=== PATIENT | female | born 1930 | race Caucasian/White ===

== ENCOUNTER 2018-08-29 08:04 | Day surgery (SDC) | payer MEDICARE ==
[~2018-08-29] VITALS: Ht 165.1 cm; Wt 66.7 kg
[~2018-08-29 08:04] MED LIST: CLOPIDOGREL75 MG PO; ECOTRIN LOW STR81 MG PO; METOPROL TAR25 M1 PO; PROTONIX40 M2 PO; SIMVASTATIN40 MG PO
[2018-08-29 09:48] LABS: HEMATOCRIT 23.9 % (37.0-47.0); HEMOGLOBIN 7.6 g/dl (12.0-16.0); IMMATURE GRANULOCYTES 0.3 % (0.0-5.0); MEAN CELL VOLUME 83.9 fL CALC (80.0-100.0); MEAN CORPUSCULAR HGB 26.7 pG CALC (26.0-32.0); MEAN CORPUSCULAR HGB CONC 31.8 g/L CALC (32.0-36.0); NEUT# 2.56 thou/uL (2.00-7.15); RED BLOOD COUNT 2.85 mill/uL (4.20-5.60)
[2018-08-29 10:56] VITALS: BP 140/66
== END 2018-08-29 11:18 | disposition home or self-care (01) ==
LOC: ENDO 08:04 → ORM 09:15 → ENDO 10:00
PROVIDERS: ATTEND Surgery
PROC: 0DJ08ZZ Inspection of Upper Intestinal Tract, Via Natural or Artificial Opening Endoscopic (ICD-10-PCS; principal; 2018-08-29)
PROC: 0DJD8ZZ Inspection of Lower Intestinal Tract, Via Natural or Artificial Opening Endoscopic (ICD-10-PCS; 2018-08-29)
DX: D50.9 Iron deficiency anemia, unspecified (principal); R19.5 Other fecal abnormalities; K57.30 Diverticulosis of large intestine without perforation or abscess without bleeding; K64.8 Other hemorrhoids; I10 Essential (primary) hypertension

== ENCOUNTER → 2018-09-29 | Outpatient (REF) | payer MEDICARE ==
[2018-09-29] VITALS (8 sets, daily range): BP systolic 110–124; BP diastolic 56–65
== END | disposition home or self-care (01) ==
LOC: MSOP 07:57
PROVIDERS: ATTEND Nurse Practitioner Family
PROC: 30233N1 Transfusion of Nonautologous Red Blood Cells into Peripheral Vein, Percutaneous Approach (ICD-10-PCS; principal; 2018-09-29)
PROC: 30233N1 Transfusion of Nonautologous Red Blood Cells into Peripheral Vein, Percutaneous Approach (ICD-10-PCS; 2018-09-29)
DX: D64.9 Anemia, unspecified (principal)
CPT/HCPCS: P9016

== ENCOUNTER 2019-06-24 16:29 | Emergency (ER) | payer MEDICARE ==
[~2019-06-24] VITALS: Ht 165.1 cm; Wt 67.0 kg
[~2019-06-24 16:29] MED LIST changes: +CALCIUM600 M1 PO; +FISH OIL1000 MG PO; +FOLIC ACID1 M1 PO; +GLIPIZIDE10 MG PO; +LIPITOR40 M1 PO; +LISINOPRIL20 MG PO; +TRULICITY1.5 MG/0.5 SC; +VITAMIN C500 M6 PO
[2019-06-24 17:36] LABS: HEMATOCRIT 29.3 % (37.0-47.0); HEMOGLOBIN 9.9 g/dl (12.0-16.0); IMMATURE GRANULOCYTES 0.8 % (0.0-5.0); MEAN CELL VOLUME 87.7 fL CALC (80.0-100.0); MEAN CORPUSCULAR HGB 29.6 pG CALC (26.0-32.0); MEAN CORPUSCULAR HGB CONC 33.8 g/L CALC (32.0-36.0); NEUT# 9.14 thou/uL (2.00-7.15); RED BLOOD COUNT 3.34 mill/uL (4.20-5.60); RED CELL DISTRI WIDTH 14.1 % (11.5-15.5)
[2019-06-24 18:02] LABS: BUN 17 mg/dL (8-23); BUN/CREATININE RATIO 25 (12-20 (CALC)); CARBON DIOXIDE 24 mmol/l (22-30); CHLORIDE 94 mmol/l (95-108); CREATININE 0.7 mg/dL (0.5-1.0); GFR > 60 ML/MIN (>=60 (CALC)); GFR FOR AFR.AMER. > 60 ML/MIN (>=60 (CALC)); POTASSIUM 4.2 mmol/l (3.5-5.1)
[2019-06-24 18:03] LABS: ANION GAP 16 (6-22 (CALC)); SODIUM 130 mmol/l (137-146)
[2019-06-24 18:37] VITALS: BP 176/105
[2019-06-24] MEDS ORDERED: VOLTAREN1%GEL TOP (18:42)
== END 2019-06-24 18:47 | disposition home or self-care (01) ==
LOC: ED 16:29
PROVIDERS: Family Medicine
DX: R60.0 Localized edema (principal); S29.012A Strain of muscle and tendon of back wall of thorax, initial encounter; E87.1 Hypo-osmolality and hyponatremia; D64.9 Anemia, unspecified; X58.XXXA Exposure to other specified factors, initial encounter; Z95.0 Presence of cardiac pacemaker
CPT/HCPCS: P9016

== ENCOUNTER 2019-07-03 12:05 | Observation (INO) | payer MEDICARE ==
[~2019-07-03] VITALS: Ht 162.6 cm; Wt 70.8 kg
[~2019-07-03 12:05] MED LIST changes: +VOLTAREN1%GEL TOP
[2019-07-03 12:20] VITALS: BP 142/81
[2019-07-03 13:13] LABS: HEMATOCRIT 26.2 % (37.0-47.0); MEAN CELL VOLUME 87.9 fL CALC (80.0-100.0); MEAN CORPUSCULAR HGB 30.2 pG CALC (26.0-32.0); MEAN CORPUSCULAR HGB CONC 34.4 g/L CALC (32.0-36.0); NEUT# 8.66 thou/uL (2.00-7.15); RED BLOOD COUNT 2.98 mill/uL (4.20-5.60); RED CELL DISTRI WIDTH 15.2 % (11.5-15.5)
--- NOTE | 2019-07-03 13:30 | NUR ---
PT HAD COME VIA WHEELCHAIR A DIRECT ADMIT. ASSESSMENT DONE. PT A&O X3 BUT FORGETFUL AT TIMES. TELE IN PLACE. PT STATED PAIN IN BACK. RESPS EVEN AND UNLABORED. PT DENIES ANY NEEDS AT THIS TIME. SAFETY PRECAUTIONS REINFORCED AND CALL LIGHT IN REACH.
[2019-07-03 13:36] LABS: ALBUMIN 3.6 g/dL (3.2-5.0); ALKALINE PHOSPHATASE 147 u/l (38-126); ANION GAP 13 (6-22 (CALC)); BUN 18 mg/dL (8-23); BUN/CREATININE RATIO 29 (12-20 (CALC)); CARBON DIOXIDE 29 mmol/l (22-30); CHLORIDE 93 mmol/l (95-108); CREATININE 0.6 mg/dL (0.5-1.0); GFR > 60 ML/MIN (>=60 (CALC)); GFR FOR AFR.AMER. > 60 ML/MIN (>=60 (CALC)); POTASSIUM 3.6 mmol/l (3.5-5.1); SODIUM 132 mmol/l (137-146); TOTAL PROTEIN 6.5 g/dL (6.3-8.2)
[2019-07-03 13:42] LABS: BILIRUBIN, TOTAL 0.7 mg/dL (0.0-1.4); SGOT/AST 326 u/l (9-36)
[2019-07-03] MEDS ORDERED: TOPROL XL25 M1 PO (15:11)
--- NOTE | 2019-07-03 16:05 | NUR ---
PT IS SITTING IN RECLINER WITH NO S/S OF DISTRESS NOTED. PT DENIES ANY NEEDS AT THIS TIME. CALL LIGHT IN REACH.
[2019-07-03 16:57] VITALS: BP 134/70
[2019-07-03 18:50] VITALS: BP 117/69
--- NOTE | 2019-07-03 18:50 | NUR ---
REPORT FROM NICOLE DENIS. PT SITTING UP IN CHAIR AT BEDSIDE. ALERT AND ORIENTED. PT DENIES ANY PAIN OR DISCOMFORT. IV SITE APPEARS HEALTHY. MOTH EXTERMINATOR IN PLACE. DISCUSSED POC. PT VERBALIZED UNDERSTANDING. NO CURRENT WANTS OR NEEDS NOTED. CALL LIGHT WITHIN REACH. WILL CONTINUE TO MONITOR.
--- NOTE | 2019-07-03 20:31 | NUR ---
PARTIAL BATH AND LINEN CHANGE UPON REQUEST. PT SITTING UP IN CHAIR. NO APPARENT DISTRESS NOTED. CALL LIGHT WITHIN REACH. WILL CONTINUE TO MONITOR.
[2019-07-04] VITALS (7 sets, daily range): BP systolic 110–139; BP diastolic 72–85
--- NOTE | 2019-07-04 01:28 | NUR ---
PT RESTING IN BED WITH EYES CLOSED. WAKES EASILY. ER KILN PUSHER REPORTS 10 BEAT RUN OF VTACH. PT DENIES ANY PALPITATIONS OR FLUTTERING. NO APPARENT DISTRESS NOTED. PHYSICIAN MADE AWARE. CALL LIGHT WITHIN REACH. WILL CONTINUE TO MONITOR.
--- NOTE | 2019-07-04 05:31 | NUR ---
PT RESTING IN BED WITH EYES CLOSED. NO APPARENT DISTRESS NOTED. CALL LIGHT WITHIN REACH. WILL CONTINUE TO MONITOR.
[2019-07-04 05:33] LABS: ANION GAP 15 (6-22 (CALC)); BUN 17 mg/dL (8-23); BUN/CREATININE RATIO 30 (12-20 (CALC)); CARBON DIOXIDE 31 mmol/l (22-30); CHLORIDE 91 mmol/l (95-108); CREATININE 0.6 mg/dL (0.5-1.0); GFR > 60 ML/MIN (>=60 (CALC)); GFR FOR AFR.AMER. > 60 ML/MIN (>=60 (CALC)); POTASSIUM 3.3 mmol/l (3.5-5.1); SODIUM 133 mmol/l (137-146)
--- NOTE | 2019-07-04 08:00 | NUR ---
ASSESSMENT DONE. TELE IN PLACE. PT IS A&O X3. PT DENIES PAIN AT THIS TIME. RESPS EVEN AND UNLABORED. PT DENIES ANY NEEDS AT THIS TIME CALL LIGHT IN REACH.
[2019-07-04 08:06] LABS: ALBUMIN 3.3 g/dL (3.2-5.0); BILIRUBIN, TOTAL 0.8 mg/dL (0.0-1.4); TOTAL PROTEIN 5.9 g/dL (6.3-8.2)
--- NOTE | 2019-07-04 12:06 | NUR ---
PT IS SITTING IN RECLINER. PT DENIES ANY NEEDS AT THIS TIME. PO FLUIDS PROVIDED. CALL LIGHT IN REACH.
--- NOTE | 2019-07-04 16:03 | NUR ---
PT IS SITTING IN RECLINER. PT DENIES PAIN OR NEEDS AT THIS TIME. CALL LIGHT IN REACH.
--- NOTE | 2019-07-04 19:28 | NUR ---
REPORT FROM NICOLE DENIS. PT SITTING UP IN CHAIR AT BEDSIDE. NO APPARENT DISTRESS NOTED. PT ALERT AND ORIENTED. DENIES ANY PAIN OR DISCOMFORT. IV SITE APPEARS HEALTHY. STAPLING MACHINE OPERATOR IN PLACE. DISCUSSED POC. PT VERBALIZED UNDERSTANDING. CALL LIGHT WITHIN REACH. WILL CONTINUE TO MONITOR.
--- NOTE | 2019-07-04 23:11 | NUR ---
PT RESTING IN BED WITH EYES CLOSED. NO APPARENT DISTRESS NOTED. PT DENIES ANY PAIN OR DISCOMFORT. CALL LIGHT WITHIN REACH. WILL CONTINUE TO MONITOR.
--- NOTE | 2019-07-05 03:15 | NUR ---
PT RESTING IN BED WITH EYES CLOSED. NO APPARENT DISTRESS NOTED. CALL LIGHT WITHIN REACH. WILL CONTINUE TO MONITOR.
[2019-07-05 04:29] VITALS: BP 114/79
[2019-07-05 06:14] LABS: HEMATOCRIT 26.1 % (37.0-47.0); HEMOGLOBIN 8.8 g/dl (12.0-16.0); IMMATURE GRANULOCYTES 0.6 % (0.0-5.0); MEAN CELL VOLUME 88.8 fL CALC (80.0-100.0); MEAN CORPUSCULAR HGB 29.9 pG CALC (26.0-32.0); MEAN CORPUSCULAR HGB CONC 33.7 g/L CALC (32.0-36.0); NEUT# 6.63 thou/uL (2.00-7.15); RED BLOOD COUNT 2.94 mill/uL (4.20-5.60); RED CELL DISTRI WIDTH 15.1 % (11.5-15.5)
[2019-07-05 06:27] LABS: ALKALINE PHOSPHATASE 131 u/l (38-126); ANION GAP 11 (6-22 (CALC)); BUN 13 mg/dL (8-23); BUN/CREATININE RATIO 23 (12-20 (CALC)); CARBON DIOXIDE 35 mmol/l (22-30); CHLORIDE 91 mmol/l (95-108); CREATININE 0.6 mg/dL (0.5-1.0); GFR > 60 ML/MIN (>=60 (CALC)); GFR FOR AFR.AMER. > 60 ML/MIN (>=60 (CALC)); MAGNESIUM 1.6 mg/dL (1.6-2.3); POTASSIUM 3.8 mmol/l (3.5-5.1); SGOT/AST 192 u/l (9-36); SODIUM 133 mmol/l (137-146)
--- NOTE | 2019-07-05 08:15 | NUR ---
PT IS SITTING IN RECLINER. PT IS A&O X3. PT DENIES PAIN AT THIS TIME. TELE IN PLACE. PT DENIES ANY NEEDS AT THIS TIME . CALL LIGHT IN REACH.
--- NOTE | 2019-07-05 10:04 | NUR ---
REFUSED PHYS THERAPY THIS AM.
[2019-07-05 10:47] VITALS: BP 106/69
[2019-07-05 11:00] LABS: URINE BLOOD DIPSTICK NEGATIVE (NEGATIVE); URINE COLOR YELLOW; URINE GLUCOSE - DIPSTICK NEGATIVE (NEGATIVE); URINE KETONE NEGATIVE (NEGATIVE); URINE LEUK ESTERASE NEGATIVE (NEGATIVE); URINE NITRITE - DIPSTICK NEGATIVE (Negative); URINE PROTEIN - DIPSTICK 30 mg/dL (NEG-TRACE); URINE SPECIFIC GRAVITY 1.015
[2019-07-05 11:05] LABS: URINE BILIRUBIN - DIPSTICK SMALL (NEGATIVE); URINE EPITHELIAL CELLS MODERATE EPI/hpf (0-FEW)
--- NOTE | 2019-07-05 12:00 | NUR ---
PT IS SITTING IN RECLINER. PT DENIES PAIN OR NEEDS AT THIS TIME. CALL LIGHT IN REACH.
[2019-07-05] MEDS ORDERED: LASIX 20 MG TAB20 MG PO (13:10)
[2019-07-05] MEDS ORDERED: VANTIN200 M1 PO (13:11)
[2019-07-05 16:02] VITALS: BP 112/72
--- NOTE | 2019-07-05 18:00 | NUR ---
Discharge instructions given. Patient verbalizes understanding of same. Discharged in stable condition via Wheelchair to Home with family. All belongings sent with pt.
== END 2019-07-05 18:00 | disposition home health service (06) ==
LOC: MS2 12:05
PROVIDERS: Nurse Practitioner Family; ADMIT Internal Medicine; ATTEND Internal Medicine
PROC: 3E0234Z Introduction of Serum, Toxoid and Vaccine into Muscle, Percutaneous Approach (ICD-10-PCS; principal; 2019-07-05)
DX: I11.0 Hypertensive heart disease with heart failure (principal); I50.9 Heart failure, unspecified; D64.9 Anemia, unspecified; R74.0 Nonspecific elevation of levels of transaminase and lactic acid dehydrogenase [LDH]; E87.1 Hypo-osmolality and hyponatremia; M25.512 Pain in left shoulder; M62.81 Muscle weakness (generalized); E87.6 Hypokalemia; Z95.0 Presence of cardiac pacemaker; Z23 Encounter for immunization
CPT/HCPCS: G0378; G0379

== ENCOUNTER 2019-08-16 11:57 | Inpatient (IN) | payer MEDICARE ==
[~2019-08-16] VITALS: Ht 165.1 cm; Wt 57.2 kg
[~2019-08-16 11:57] MED LIST changes: +LASIX 20 MG TAB20 MG PO; +TOPROL XL25 M1 PO; +VANTIN200 M1 PO
[2019-08-16 12:38] VITALS: BP 116/77
[2019-08-16 13:44] LABS: HEMATOCRIT 26.8 % (37.0-47.0); HEMOGLOBIN 9.1 g/dl (12.0-16.0); IMMATURE GRANULOCYTES 1.2 % (0.0-5.0); MEAN CORPUSCULAR HGB 29.5 pG CALC (26.0-32.0); NEUT# 5.98 thou/uL (2.00-7.15); RED BLOOD COUNT 3.08 mill/uL (4.20-5.60)
[2019-08-16 13:59] LABS: ALBUMIN 3.3 g/dL (3.2-5.0); ALKALINE PHOSPHATASE 179 u/l (38-126); ANION GAP 12 (6-22 (CALC)); BILIRUBIN, TOTAL 1.4 mg/dL (0.0-1.4); BUN 18 mg/dL (8-23); BUN/CREATININE RATIO 29 (12-20 (CALC)); CARBON DIOXIDE 35 mmol/l (22-30); CHLORIDE 85 mmol/l (95-108); CREATININE 0.6 mg/dL (0.5-1.0); GFR > 60 ML/MIN (>=60 (CALC)); GFR FOR AFR.AMER. > 60 ML/MIN (>=60 (CALC)); POTASSIUM 3.1 mmol/l (3.5-5.1); SGOT/AST 92 u/l (9-36); SODIUM 129 mmol/l (137-146); TOTAL PROTEIN 5.9 g/dL (6.3-8.2)
[2019-08-16 15:05] VITALS: BP 124/82
--- NOTE | 2019-08-16 18:29 | NUR ---
PT ARRIVED TO FLOOR @ 1220 VIA WC ACCOMPANIED BY FRIEND. PT REPORTS FATIGUE AND GENERALIZED WEAKNESS IS REASON FOR ADMITTANCE. REPORTS CONDITION HAS BEEN ONGOING FOR A COUPLE WEEKS. NO PAIN. NO FEVER. ALSO REPORTS ISSUES WITH CONSTIPATION LATELY, HAD BEEN TAKING [place] WHICH STOPPED WORKING, ADN STARTED TAKING [place]. CONSTIPATION IS ACCOMPANEID BY MILD LOW BACK PAIN. PT ALERT ADN ORIENTED. ON RA. LE EDEMA 3+ NOTED, COMPRESSION STOCKINGS FROM HOME IN PLACE. PT REPORTS PACEMAKER. LAST BM 08/15/19, BROWN AND HARD. PT AMBULATED TO BATHROOM, ENVIRONMENTALLY DEPENDENT. WEAKNESS IN LEGS. PT NOTIFIED OF FALL RISK. FALL PRECAUTIONS DISCUSSED. PLAN OF CARE REVIEWED. CALL LIGHT REVIEWED AND IN REACH. PT STATES UNDERSTANDING.
[2019-08-16 19:44] LABS: URINE BILIRUBIN - DIPSTICK SMALL (NEGATIVE); URINE BLOOD DIPSTICK NEGATIVE (NEGATIVE); URINE CLARITY CLOUDY; URINE COLOR YELLOW; URINE GLUCOSE - DIPSTICK 100 mg/dL (NEGATIVE); URINE KETONE NEGATIVE (NEGATIVE); URINE LEUK ESTERASE MODERATE (Negative); URINE NITRITE - DIPSTICK NEGATIVE (Negative); URINE PH 6.5 (4.5-8.0); URINE PROTEIN - DIPSTICK 30 mg/dL (NEG-TRACE); URINE SPECIFIC GRAVITY 1.015; URINE UROBILINOGEN - DIPSTICK >=8.0 E.U./dL (0.2)
[2019-08-16 20:00] VITALS: BP 129/81
[2019-08-16 20:03] LABS: URINE BACTERIA FEW hpf; URINE CALCIUM OXALATE CRYSTALS FEW lpf; URINE SQUAMOUS EPITHELIAL CELL FEW EPI/hpf (0-FEW); URINE WBC 20-50 WBC/hpf (0-5)
--- NOTE | 2019-08-16 20:38 | NUR ---
ASSESSMENT COMPLETED. IV SITE PATENT TO LAC AND SL. POTASSIUM GIVEN AT THIS TIME PER ORDER. PT. HAS HER OWN COMPRESSION STOCKINGS ON TO BLE. UPDATED ON POC. ENCOURAGED TO CALL FOR ANY NEEDS. CALL LIGHT IS IN REACH. WILL CONTINUE TO MONITOR.
--- NOTE | 2019-08-17 00:05 | NUR ---
PT. RESTING IN BED WITH EYES CLOSED; RESP. EVEN AND UNLABORED. CALL LIGHT IS IN REACH. WILL CONTINUE TO MONITOR.
[2019-08-17 04:00] VITALS: BP 116/73
--- NOTE | 2019-08-17 04:00 | NUR ---
RESTING IN BED WITH EYES CLOSED. RESP. EVEN AND UNLABORED. CALL LIGHT IS IN REACH.
[2019-08-17 05:09] LABS: HEMATOCRIT 27.1 % (37.0-47.0); HEMOGLOBIN 9.3 g/dl (12.0-16.0); MEAN CELL VOLUME 86.9 fL CALC (80.0-100.0); MEAN CORPUSCULAR HGB 29.8 pG CALC (26.0-32.0); MEAN CORPUSCULAR HGB CONC 34.3 g/L CALC (32.0-36.0); RED BLOOD COUNT 3.12 mill/uL (4.20-5.60)
[2019-08-17 05:33] LABS: BUN 19 mg/dL (8-23); BUN/CREATININE RATIO 31 (12-20 (CALC)); CARBON DIOXIDE 33 mmol/l (22-30); CHLORIDE 88 mmol/l (95-108); CREATININE 0.6 mg/dL (0.5-1.0); GFR > 60 ML/MIN (>=60 (CALC)); GFR FOR AFR.AMER. > 60 ML/MIN (>=60 (CALC)); SODIUM 128 mmol/l (137-146)
[2019-08-17 05:36] LABS: ANION GAP 11 (6-22 (CALC))
--- NOTE | 2019-08-17 06:01 | NUR ---
RESTING IN BED WITH EYES CLOSED; RESP. EVEN AND UNLABORED. CALL LIGHT IS IN REACH.
[2019-08-17 07:13] VITALS: BP 126/81
--- NOTE | 2019-08-17 07:13 | NUR ---
PT RESTING IN BED, NO SIGNS OF DISTRESS NOTED, RESP EVEN AND UNLABORED. PT ALERT AND ORIENTED X3, DISCUSSED POC, PT VOICES NO NEEDS OR COMPLAINTS AT THIS TIME. ASSESSMENT COMPLETED. CALL LIGHT IN REACH,CONTINUE TO MONITOR.
[2019-08-17 11:56] VITALS: BP 130/85
--- NOTE | 2019-08-17 12:00 | NUR ---
PT PLACED ON 1500ML FLUID RESTRICTION. PT DOES NOT HAVE APPETITE, STILL C/O WEAKNESS. DISCUSSED WITH EPIC PRELUDE ANALYST, ENSURE TID WITH MEALS ORDERED. CALL LIGHT IN REACH,CONTINUE TO MONITOR.
--- NOTE | 2019-08-17 14:38 | NUR ---
PT GIVEN IV LASIX, ASSISTED PT TO BSC ATTEMPTING BM BUT UNABLE, WILL NOTIFY MD FOR STOOL SOFTENER. PT STILL C/O WEAKNESS. DISCUSSED POSSIBLY MOVING PT TO ROOM CLOSER TO NURSES STATION, PT DECLINED AT THIS TIME. WILL ATTEMPT AGAIN AT LATER TIME. CALL LIGHT IN REACH,CONTINUE TO MONITOR.
--- NOTE | 2019-08-17 15:32 | NUR ---
PT BLADDER SCANNED 134ML NOTED
--- NOTE | 2019-08-17 16:00 | NUR ---
PT ASSISTED TO BSC TO VOID, PT STATES SHE IS CONSTIPATED AND IS GOING TO BE ON THE BSC A WHILE, INSTRUCTED TO CALL FOR ASSISTANCE, VERBALIZED UNDERSTANDING. WHEN WORKFORCE DEVELOPMENT VICE PRESIDENT ARRIVED TO ROOM, NOTED PT WAS DIGITALLY DISIMPACTING HERSELF, INSTRUCTED PT NOT TO DO THAT, NOTED SMALL HARD STOOL, PERICARE GIVEN, ASSISTED PT TO BED, MANTEL CRAFTSMAN NOTIFIED AND SUPPOSITORY OBTAINED. CALL LIGHT IN REACH,CONTINUE TO MONITOR.
[2019-08-17 16:34] VITALS: BP 126/83
--- NOTE | 2019-08-17 17:08 | NUR ---
PT MOVED TO RM 271 CLOSER TO NURSES STATION, PT TOLERATED WELL. CALL LIGHT IN REACH,CONTINUE TO MONITOR.
[2019-08-17 19:00] VITALS: BP 137/79
--- NOTE | 2019-08-17 20:24 | NUR ---
PT SITTING IN BED A&O X3. NO DISTRESS NOTED. ASSISTED PT TO BSC. LETHARGIC DEMENOR NOTED. PT C/O OF SOME WEAKNESS. NO OTHER COMPLAINTS AT THIS TIME. ASSESSMENT COMPLETED. DISCUSSED POC. CALL LIGHT IN REACH. CONTINUE TO MONITOR.
--- NOTE | 2019-08-17 21:12 | NUR ---
ASSISTED PT TO BSC. 800 URINE OUTPUT. ASSISTED PT BACK INTO BED. BED ALARM SET AND INSTRUCTIONS GIVEN TO CALL WHEN SHE NEEDS TO GO TO THE BATHROOM. PT VERBALIZED UNDERSTANDING.
--- NOTE | 2019-08-17 22:11 | NUR ---
ASSISTED PT TO BSC. 500 URINE OUTPUT. ASSISTED PT BACK INTO BED. BED ALARM SET AND INSTRUCTIONS GIVEN TO CALL WHEN SHE HAS TO GO TO THE BATHROOM. PT VERBALIZED UNDERSTANDING.
[2019-08-18] VITALS: BP 133/71
--- NOTE | 2019-08-18 02:30 | NUR ---
PT SLEEPING IN BED. NO DISTRESS NOTED. CONTINUE TO MONITOR.
[2019-08-18 05:41] VITALS: BP 141/80
[2019-08-18 05:45] LABS: HEMATOCRIT 28.5 % (37.0-47.0); HEMOGLOBIN 9.4 g/dl (12.0-16.0); MEAN CELL VOLUME 88.8 fL CALC (80.0-100.0); MEAN CORPUSCULAR HGB 29.3 pG CALC (26.0-32.0); RED BLOOD COUNT 3.21 mill/uL (4.20-5.60)
[2019-08-18 05:59] LABS: BUN 20 mg/dL (8-23); BUN/CREATININE RATIO 33 (12-20 (CALC)); CARBON DIOXIDE 37 mmol/l (22-30); CHLORIDE 84 mmol/l (95-108); CREATININE 0.6 mg/dL (0.5-1.0); GFR > 60 ML/MIN (>=60 (CALC)); GFR FOR AFR.AMER. > 60 ML/MIN (>=60 (CALC)); MAGNESIUM 1.6 mg/dL (1.6-2.3); SODIUM 130 mmol/l (137-146)
[2019-08-18 06:00] LABS: ANION GAP 12 (6-22 (CALC)); POTASSIUM 3.3 mmol/l (3.5-5.1)
--- NOTE | 2019-08-18 06:20 | NUR ---
PT SLEEPING IN BED, NO DISTRESS NOTED. RESP EVEN AND UNLABORED. CONTINUE TO MONITOR.
[2019-08-18 07:24] VITALS: BP 130/85
--- NOTE | 2019-08-18 07:24 | NUR ---
PT RESTING IN BED, NO SIGNS OF DISTRESS NOTED, RESP EVEN AND UNLABORED. ALERT AND ORIENTED X3, PT HAS CONFUSION AT TIMES, BED ALARM IN PLACE FOR SAFETY. PT APPEARS BETTER THAN YESTERDAY, NOT LETHARGIC. PT STATES SHE FEELS BETTER. DISCUSSED 1000ML FLUIDS RESTRICTION, VERBALIZED UNDERSTANDING. ASSESSMENT COMPLETED, CALL LIGHT IN REACH,CONTINUE TO MONITOR.
--- NOTE | 2019-08-18 08:34 | NUR ---
PT RETURNED FROM SHOWER, SITTING IN RECLINER WITH LEGS ELEVATED. VOICES NO NEEDS OR COMPLAINTS AT THIS TIME. MEDICATED PER SEP. CALL LIGHT IN REACH,CONTINUE TO MONITOR.
--- NOTE | 2019-08-18 09:42 | NUR ---
PT ASSISTED TO BSC PT VOIDED 500CC OF CLEAR YELLOW URINE, ASSISTED PT BACK TO RECLINER. CALL LIGHT IN REACH,CONTINUE TO MONITOR.
[2019-08-18 11:38] VITALS: BP 136/81
--- NOTE | 2019-08-18 12:16 | NUR ---
PT MOVED FROM 271 TO RM 280. PT CONTENT, THE ROOM IS WARMER. CALL LIGHT IN REACH,CONTINUE TO MONITOR.
--- NOTE | 2019-08-18 12:39 | NUR ---
RN AT BEDSIDE GIVING IV APRESOLINE.
[2019-08-18 15:00] VITALS: BP 112/68
--- NOTE | 2019-08-18 15:08 | NUR ---
PT SITTING IN RECLINER AT BEDSIDE, VOICES NO NEEDS OR COMPLAINTS AT THIS TIME, PT GIVEN HER 3-11 CUP AT THIS TIME FOR FLUID RESTRICTION, PT VERBALIZED UNDERSTANDING. VISITORS AT BEDSIDE, CALL LIGHT IN REACH,CONTINUE TO MONITOR.
--- NOTE | 2019-08-18 16:56 | NUR ---
PT RESTING IN RECLINER, PT VOICES NO NEEDS OR COMPLAINTS AT THIS TIME. CALL LIGHT IN REACH,CONTINUE TO MONITOR.
--- NOTE | 2019-08-18 20:06 | NUR ---
PT SITTING IN RECLINER. A&O X3. NO DISTRESS NOTED. WHEN ASKED HOW SHE WAS DOING PT VOICED THAT SHE WAS NOT DOING GOOD AND THAT SHE FELT REALLY WEAK. EXPLAINED TO THE PT THAT PT AND OT WOULD BE ASSISTING HER TO REGAIN HER STRENGTH. NOTICED THAT SHE HAD NOT EATEN ANYTHING FROM THE SUPPER THAT WAS BROUGHT TO HER. OFFERED APPLESAUCE AND PT ACCEPTED OFFER. INSTRUCTED PT THAT IF SHE HAD TO GET OUT OF THE RECLINER SHE WAS TO PRESS THE CALL LIGHT BUTTON. DISCUSSED POC. ASSESSMENT COMPLETED. CALL LIGHT IN REACH. CONTINUE TO MONITOR.
--- NOTE | 2019-08-18 20:10 | NUR ---
IV LASIX GIVEN. PT ASSISTED BACK INTO BED WITH SLOW AND SLIGHT UNSTEADY GAIT. BED ALARM IN PLACE. CALL LIGHT IN REACH. CONTINUE TO MONITOR.
[2019-08-18 20:54] VITALS: BP 124/79
--- NOTE | 2019-08-18 23:00 | NUR ---
PT SLEEPING IN BED. NO DISTRESS NOTED. RESP EVEN AND UNLABORED. CONTINUE TO MONITOR.
[2019-08-19] VITALS (7 sets, daily range): BP systolic 98–126; BP diastolic 60–81
[2019-08-19 05:33] LABS: ANION GAP 12 (6-22 (CALC)); BUN 22 mg/dL (8-23); BUN/CREATININE RATIO 40 (12-20 (CALC)); CHLORIDE 81 mmol/l (95-108); CREATININE 0.6 mg/dL (0.5-1.0); GFR > 60 ML/MIN (>=60 (CALC)); GFR FOR AFR.AMER. > 60 ML/MIN (>=60 (CALC)); HEMATOCRIT 29.9 % (37.0-47.0); HEMOGLOBIN 10.1 g/dl (12.0-16.0); MAGNESIUM 1.5 mg/dL (1.6-2.3); MEAN CELL VOLUME 86.4 fL CALC (80.0-100.0); MEAN CORPUSCULAR HGB 29.2 pG CALC (26.0-32.0); MEAN CORPUSCULAR HGB CONC 33.8 g/L CALC (32.0-36.0); POTASSIUM 3.4 mmol/l (3.5-5.1); RED BLOOD COUNT 3.46 mill/uL (4.20-5.60); SODIUM 130 mmol/l (137-146)
[2019-08-19 05:51] LABS: CARBON DIOXIDE 40 mmol/l (22-30)
--- NOTE | 2019-08-19 05:56 | NUR ---
CRITICAL RESULT CALLED IN TO DR RANGEL. CO2 LEVEL: 40. PER PHYSICIAN CONTINUE TO MONITOR PT.
--- NOTE | 2019-08-19 08:00 | NUR ---
ASSESSMENT DONE. PT IS SITTING IN RECLINER. PT IS A&O X3 BUT FORGETFUL AT TIMES. PT DENIES PAIN. TELE IN PLACE. PT DENIES NEEDS AT THIS TIME. SAFETY PRECAUTIONS REINFORCED AND CALL LIGHT IN REACH.
--- NOTE | 2019-08-19 12:06 | NUR ---
PT IS SITTING IN RECLINER TRYING TO EAT HER LUNCH. PT DENIES NEEDS AT THIS TIME. CALL LIGHT IN REACH.
--- NOTE | 2019-08-19 16:29 | NUR ---
PT IS RESTING IN THE RECLINER VISIING WITH FAMILY. PT DENIES NEEDS AT THIS TIME. CALL LIGHT IN REACH.
--- NOTE | 2019-08-19 19:00 | NUR ---
RECEIVED REPORT FROM DAY NURSE PATIENT APPEARS TO BE SLEEPING IN RECLINER. WITH NO DISCOMFORTS NOTED AT THIS TIME,
--- NOTE | 2019-08-19 21:00 | NUR ---
PATIENT ALERT ORINETED, ONE PERSON ASSIST WITH TRANSFER WITH [place] ON LAC PATENT FLUSHES WELL, LBM 08/18, REMAINS ON FLUID RESTICTION, CALL LIGHT AT REACH.
--- NOTE | 2019-08-19 22:00 | NUR ---
PATIENT HAS AN ONGOING MAGNESIUM SULFATE INFUSION, TOLERATED, RESTING IN BED, EYES CLOSED CALL LIGHT AT REACH.
--- NOTE | 2019-08-20 01:00 | NUR ---
PATIENT RESTING IN BED WITH EYES CLOSED WITH EVEN UNLABORED BREATHING CALL LIGHT AT REACH.
[2019-08-20 04:30] VITALS: BP 107/64
[2019-08-20 05:16] LABS: HEMATOCRIT 30.6 % (37.0-47.0); HEMOGLOBIN 10.4 g/dl (12.0-16.0); MEAN CELL VOLUME 86.2 fL CALC (80.0-100.0); MEAN CORPUSCULAR HGB 29.3 pG CALC (26.0-32.0); RED BLOOD COUNT 3.55 mill/uL (4.20-5.60); RED CELL DISTRI WIDTH 14.9 % (11.5-15.5)
--- NOTE | 2019-08-20 05:26 | NUR ---
PATIENT ASLEEP AT THIS TIME, EVEN UNLABORED RESPIRATION CALL LIGHT AT REACH.
[2019-08-20 05:39] LABS: BUN 21 mg/dL (8-23); BUN/CREATININE RATIO 35 (12-20 (CALC)); CHLORIDE 81 mmol/l (95-108); CREATININE 0.6 mg/dL (0.5-1.0); GFR > 60 ML/MIN (>=60 (CALC)); GFR FOR AFR.AMER. > 60 ML/MIN (>=60 (CALC)); POTASSIUM 3.3 mmol/l (3.5-5.1); SODIUM 130 mmol/l (137-146)
[2019-08-20 06:00] LABS: ANION GAP 11 (6-22 (CALC)); CARBON DIOXIDE 41 mmol/l (22-30); MAGNESIUM 2.1 mg/dL (1.6-2.3)
--- NOTE | 2019-08-20 06:11 | NUR ---
AT 0558 RECEIVED A PHONE CALL FROM LAB, CRITICAL CARBON DIOXIDE LEVEL 41, AT [address] AUGUSTE NO ORDERS MADE AT THIS TIME.
[2019-08-20 09:40] VITALS: BP 97/56
[2019-08-20 10:50] VITALS: BP 102/57
[2019-08-20 11:24] VITALS: BP 109/70
--- NOTE | 2019-08-20 13:10 | NUR ---
PATIENT REFUSED TO DO GAIT TRAINING STATING THAT SHE FEELS WEAK TODAY. HOWEVER, SHE AGREED TO DO LE EXERCISES. PATIENT PERFORMED AROME ON BLE IN ALL PLANES (HIP FLEXION, HIP ABDUCTION, HEEL SLIDES, ANKLE DF/PF, AND QUADS MUSCLE SETTING WITH 6 SECS HOLD) X 15 REPS X 1 SET ON EACH MOTIONS TO MAINTAIN ROM AND MUSCLE STRENGTH. PT INSTRUCTED PATIENT TO DO EXERCISES 2X/DAY TO HELP IMPROVE/MAINTAIN STRENGTH AND ENDURANCE. PATIENT EXPRESSED UNDERSTANDING. AMPAC = 11
== END 2019-08-20 15:11 | DRG 292 ==
LOC: MS2 11:57
PROVIDERS: Nurse Practitioner Family; ADMIT Internal Medicine; ATTEND Internal Medicine
DX: I11.0 Hypertensive heart disease with heart failure (principal); E87.1 Hypo-osmolality and hyponatremia; I50.9 Heart failure, unspecified; M62.81 Muscle weakness (generalized); D75.9 Disease of blood and blood-forming organs, unspecified; I27.20 Pulmonary hypertension, unspecified; I08.3 Combined rheumatic disorders of mitral, aortic and tricuspid valves; K59.00 Constipation, unspecified; E87.6 Hypokalemia; E83.42 Hypomagnesemia; R74.0 Nonspecific elevation of levels of transaminase and lactic acid dehydrogenase [LDH]; Z95.0 Presence of cardiac pacemaker

== ENCOUNTER 2019-10-04 10:59 | Observation (INO) | payer MEDICARE ==
[~2019-10-04] VITALS: Ht 165.1 cm; Wt 56.0 kg
--- NOTE | 2019-10-04 11:02 | NUR ---
Pt to room # 6 via W/C for bedside triage
--- NOTE | 2019-10-04 12:13 | NUR ---
PT PRESENTS WITH N/V THAT [facility] STARTED A MONTH AGO AND PT HAS NOT BEEN ABLE TO KEEP FOOD OR LIQUIDS DOWN. PT MUCUS MEMBRANES SEEM DRY. PT CURRENTLY REPORTS HAVING NAUSEA AND EPIGASTRIC PAIN. LUNGS SOUND CLEAR ON LEFT SIDE BUT FAINT CRACKLES ON THE RIGHT LOWER LUNG. PT DENIES CHEST PAIN OR SOB. PT REPORTS WEAKNESS WITHOUT DIZZINESS. WILL CONTINUE TO [facility].
[2019-10-04 12:14] LABS: HEMATOCRIT 26.9 % (37.0-47.0); HEMOGLOBIN 8.9 g/dl (12.0-16.0); IMMATURE GRANULOCYTES 1.7 % (0.0-5.0); MEAN CELL VOLUME 89.1 fL CALC (80.0-100.0); MEAN CORPUSCULAR HGB 29.5 pG CALC (26.0-32.0); MEAN CORPUSCULAR HGB CONC 33.1 g/L CALC (32.0-36.0); NEUT# 8.03 thou/uL (2.00-7.15); RED BLOOD COUNT 3.02 mill/uL (4.20-5.60); RED CELL DISTRI WIDTH 13.6 % (11.5-15.5)
[2019-10-04 12:28] LABS: ALBUMIN 3.6 g/dL (3.2-5.0); ALKALINE PHOSPHATASE 190 u/l (38-126); BUN 33 mg/dL (8-23); BUN/CREATININE RATIO 42 (12-20 (CALC)); CARBON DIOXIDE 36 mmol/l (22-30); CREATININE 0.8 mg/dL (0.5-1.0); GFR > 60 ML/MIN (>=60 (CALC)); GFR FOR AFR.AMER. > 60 ML/MIN (>=60 (CALC)); SGOT/AST 93 u/l (9-36); SODIUM 134 mmol/l (137-146); TOTAL PROTEIN 6.6 g/dL (6.3-8.2)
[2019-10-04 12:29] LABS: ANION GAP 10 (6-22 (CALC)); BILIRUBIN, TOTAL 0.8 mg/dL (0.0-1.4); CHLORIDE 92 mmol/l (95-108); POTASSIUM 4.2 mmol/l (3.5-5.1)
[2019-10-04 12:33] LABS: ACT PARTIAL THROMBO TIME 23.3 SECONDS (20.0-32.5); INTERNATIONAL NORMALIZED RATIO 1.2 RATIO (0.7-1.3); PROTHROMBIN TIME 12.2 SECONDS (9.0-12.5)
[2019-10-04 12:51] LABS: URINE BILIRUBIN - DIPSTICK NEGATIVE (NEGATIVE); URINE BLOOD DIPSTICK NEGATIVE (NEGATIVE); URINE COLOR YELLOW; URINE GLUCOSE - DIPSTICK NEGATIVE (NEGATIVE); URINE KETONE NEGATIVE (NEGATIVE); URINE NITRITE - DIPSTICK NEGATIVE (Negative); URINE PH 5.5 (4.5-8.0); URINE PROTEIN - DIPSTICK NEGATIVE (NEG-TRACE)
[2019-10-04 12:54] LABS: URINE LEUK ESTERASE MODERATE (NEGATIVE)
[2019-10-04 12:55] LABS: URINE BACTERIA FEW hpf; URINE EPITHELIAL CELLS MODERATE EPI/hpf (0-FEW)
--- NOTE | 2019-10-04 13:00 | NUR ---
PT RESTING ON BED TALKING WITH FRIENDS WHO ARE AT BEDSIDE. PT DENIES ANY PAIN OR NEEDS AT THIS TIME
[2019-10-04] MEDS ORDERED: BUPROPION100 MG PO (13:38)
[2019-10-04] MEDS ORDERED: REMERON15 MG PO (13:39)
[2019-10-04] MEDS ORDERED: K-TAB20 MEQ PO (13:39)
[2019-10-04] MEDS ORDERED: BICARSIM80 MG PO (13:40)
--- NOTE | 2019-10-04 13:45 | NUR ---
REPORT MELLISSA WILKERSON IN MED SURG
--- NOTE | 2019-10-04 13:52 | NUR ---
PT TRANSPORTED STABLE AND IN NO DISTRESS TO MED SURG VIA STRETCHER. CARE ASSUMED TO RHEA. Admission Note Report Given to: Transported by: Wheelchair X Stretcher Transported with: X Nurse Transporter X Patent IV O2 Ethnoarchaeologist Location: ICU X MS2
--- NOTE | 2019-10-04 14:05 | NUR ---
Admission Note Report Given to: SBAR PRINTED TO FLOOR Transported by: Wheelchair X Stretcher Transported with: X Nurse Transporter X Patent IV O2 Orchid Superintendent Location: ICU X MS2 Personal wheelchair taken to floor with pt by family member
--- NOTE | 2019-10-04 14:08 | NUR ---
PT ARRIVED TO UNIT VIA STRETCHER WITH ER STAFF AND 2 FRIENDS. EYES CLOSED; ANSWERS QUESTIONS WITH EYES CLOSED, BUT DOES OPEN THEM ON COMMAND. ORIENTED X 2. DENIES PAIN. RESPIRATIONS EVEN AND UNLABORED ON ROOM AIR. IV FLUIDS INFUSING UPON ARRIVAL AT 100ML/HR; IV SITE APPEARS HEALTHY. BRIEF ON; PT INCONTINENT OF URINE. PER FRIENDS PT HAS BEEN HALLUC[facility]ATING AT [facility] WHERE SHE IS FROM; USES WHEELCHAIR; MAX ASSIST. ORIENTED TO ROOM AND CALL LIGHT SYSTEM. PT DROWSY AND UNABLE TO DISCUSS PLAN OF CARE AT THIS TIME. NEEDS ARE ANTICIPATED BY STAFF.
[2019-10-04 19:40] VITALS: BP 112/75
--- NOTE | 2019-10-04 21:00 | NUR ---
PT WAS SLEEPING I ENTERED ROOM. NO S/O DISTRESS NOTED.
--- NOTE | 2019-10-04 22:27 | NUR ---
PT SLEEPING, NO S/O DISTRESS NOTED. BED ALARM IS ON. IVF RUNNING TO 22LAC NS@100
--- NOTE | 2019-10-05 03:56 | NUR ---
AIDE IN W/PT OBTAINING V/S. PT WAS SLEEPING, NO S/O DISTRESS NOTED.
[2019-10-05 04:50] VITALS: BP 95/61
[2019-10-05 05:37] LABS: ALKALINE PHOSPHATASE 147 u/l (38-126); ANION GAP 8 (6-22 (CALC)); BILIRUBIN, TOTAL 0.6 mg/dL (0.0-1.4); BUN 26 mg/dL (8-23); BUN/CREATININE RATIO 40 (12-20 (CALC)); CARBON DIOXIDE 31 mmol/l (22-30); CHLORIDE 101 mmol/l (95-108); CREATININE 0.6 mg/dL (0.5-1.0); GFR > 60 ML/MIN (>=60 (CALC)); GFR FOR AFR.AMER. > 60 ML/MIN (>=60 (CALC)); SGOT/AST 71 u/l (9-36); SODIUM 136 mmol/l (137-146)
[2019-10-05 05:43] LABS: ALBUMIN 2.6 g/dL (3.2-5.0); TOTAL PROTEIN 4.9 g/dL (6.3-8.2)
--- NOTE | 2019-10-05 07:20 | NUR ---
REPORT RECEIVED FROM CIRA CHUNG;PT APPEARS TO BE SLEEPING IN SUPINE POSITION;NO S/S OF DISTRESS NOTED;RESPIRATIONS SHALLOW ON RA;IV FLUIDS INFUSING WITH EASE PER ORDER;ALL SAFETY PRECAUTIONS IN PLACE WITH BED IN THE LOWEST POSITION AND CALL LIGHT IN REACH;WILL CONTINUE TO MONITOR
--- NOTE | 2019-10-05 08:10 | NUR ---
PT RESTING IN SEMI FOWLERS POSITION,A&O X3;VS OBTAINED AND ASSESSMENT COMPLETED;PT DENIES ANY CURRENT PAIN OR DISCOMFORTS,PAIN SCALE AND REPORTING EDUCATED;RESPIRATIONS EVEN AND UNLABORED ON RA,CLEAR LUNG SOUNDS;ABDOMEN SOFT ON PALPATION AND ACTIVE IN ALL 4 QUADRANTS;WEAK PEDAL PULSES;SKIN INTACT;#22G TO LAC INFUSING NS PER ORDER,SITE APPEARS HEALTHY;PT DENIES ANY ADDITIONAL NEEDED AND IS ENCOURAGED TO CALL FOR ASSISTANCE IF NEEDED;CALL LIGHT IN REACH;WILL CONTINUE TO MONITOR
[2019-10-05 08:12] VITALS: BP 95/62
[2019-10-05 08:37] VITALS: BP 102/65
--- NOTE | 2019-10-05 09:42 | NUR ---
AT BEDSIDE DISCUSSING POC.
--- NOTE | 2019-10-05 11:25 | NUR ---
PT APPEARS TO BE SLEEPING IN SEMI FOWLERS POSITION;RESPIRATIONS REMAIN EVEN AND UNLABORED ON RA;IV SITE PATENT;NO S/S OF DISTRESS NOTED;ASSESSMENT REMAINS UNCHANGED AT THIS TIME;ENCOURAGED PT TO CALL FOR ASSISTANCE IF NEEDED;FALL PRECAUTIONS IN PLACE WITH CALL LIGHT IN REACH;WILL CONTINUE TO MONITOR
[2019-10-05 15:11] VITALS: BP 95/56
--- NOTE | 2019-10-05 16:20 | NUR ---
PT APPEARS TO BE SLEEPING IN SEMI FOWLERS POSITION;RESPIRATIONS EVEN AND UNLABORED ON RA;NO S/S OF DISTRESS NOTED;IV SITE PATENT;ALL SAFETY PRECAUTIONS IN PLACE WITH BED IN THE LOWEST POSITION AND CALL LIGHT IN REACH;WILL CONTINUE TO MONITOR
[2019-10-05 18:54] VITALS: BP 95/62
--- NOTE | 2019-10-05 20:20 | NUR ---
PT MEDICATED ORDERS PROVIDE AND ASSESSMENT COMPLETED AT THIS TIME. PT DENIES ANY NEEDS. CALL LIGHT AT BEDSIDE.
--- NOTE | 2019-10-06 00:09 | NUR ---
PT IS SLEEPING AT THIS TIME. NO S/O DISTRESS NOTED. CALL LIGHT AT SIDE.
--- NOTE | 2019-10-06 00:28 | NUR ---
PT MEDICATED ORDERS PROVIDE W/ANTIBIOTIC PO TABLET. PT TOLERATED WELL. OFFERED TO ASSIST PT REPOSITIONING, SHE REPLIED, "I CAN DO IT." PT DENIED ANY OTHER NEEDS OF ASSISTANCE, BED ALARM ON, CALL LIGHT AT SIDE.
[2019-10-06 03:46] VITALS: BP 114/68
--- NOTE | 2019-10-06 07:00 | NUR ---
SHIFT CHANGE REPORT, PT SLEEPING BUT AWAKEN TO VERBAL STIMULI, ORIENTED TO SELF AND PLACE, NO C/O DISCOMFORT AT THIS TIME, REFUSE MEAL STATING SHE WILL EAT LATER, BED IN LOWEST POSITION AND CALL STEPHENS IN REACH.
[2019-10-06 09:57] VITALS: BP 116/58
--- NOTE | 2019-10-06 12:00 | NUR ---
RESTING IN RECLINER, APPETITE POOR, ENOCURAGED TO EAT MEAL BUT ONLY TAKES FEW BITES, FLUID ENCOURAGED AND SHE ACCEPTS.
[2019-10-06 15:05] VITALS: BP 105/65
--- NOTE | 2019-10-06 16:00 | NUR ---
SITTING UP IN RECLINER, ALL NEEDS ADDRESSED, CALL STEPHENS IN REACH.
[2019-10-06 19:22] VITALS: BP 111/68
--- NOTE | 2019-10-06 21:10 | NUR ---
PT MEDICATED ORDERS PROVIDE. PT REPOSITIONED. DENIES ANY OTHER NEEDS AT THIS TIME.
--- NOTE | 2019-10-06 23:38 | NUR ---
PT MEDICATED W/PO ANTIBIOTIC THERAPY, ASSISTED PT REPOSITIONING AND DRINKING PO FLUIDS. DENIES ANY OTHER NEEDS AT THIS TIME. LIGHTS TURNED DOWN FOR COMFORT.
--- NOTE | 2019-10-07 01:40 | NUR ---
PT SLEEPING, NO S/O DISTRESS NOTED. LIGHTS AND TV ARE OFF.
[2019-10-07 04:16] VITALS: BP 107/69
--- NOTE | 2019-10-07 04:33 | NUR ---
PT SLEEPING AT THIS TIME. NO S/O DISTRESS NOTED.
--- NOTE | 2019-10-07 04:34 | NUR ---
PT SLEEPING, V/S ASSESSED, NO S/O DISTRESS AT THIS TIME.
[2019-10-07 08:08] VITALS: BP 101/54
--- NOTE | 2019-10-07 08:13 | NUR ---
PT ASSESSED AND MEDICATED ORDERS PROVIDE. LAB IN TO OBTAIN BLOOD DRAWS, UNABLE TO OBTAIN (THIRD PERSON TO TRY) ALSO UNABLE TO OBTAIN BLOOD FROM IV SITE/FLUSHES WELL AND APPEARS HEALTHY. PT LEFT EATING BREAKFAST AND SITTING IN RECLINER
[2019-10-07 09:15] VITALS: BP 104/62
--- NOTE | 2019-10-07 09:15 | NUR ---
PT SITTING UP IN RECLINER IN ROOM, SOME CONFUSION NOTED, REORIENTS EASILY AT THIS TIME, IV ACCESS INTACT, NO COMPLAINTSOFFERED, SKIN INTACT, CALL STEPHENS WITHIN REACH, ENCOURAGED TO CALL FOR ANY NEEDED ASSISTANCE.
[2019-10-07] MEDS ORDERED: AUGMENTIN500TAB PO (09:40)
[2019-10-07] MEDS ORDERED: LEXAPRO10 MG PO (09:40)
--- NOTE | 2019-10-07 11:00 | NUR ---
PT TO BE D/C TO [facility], FORM [id number] COMPLETED AND RETURNED TO [facility]. D/C INSTRUCTIONS COMPLETED.
--- NOTE | 2019-10-07 11:50 | NUR ---
Discharge instructions given. Patient verbalizes understanding of same. Discharged in stable condition via [place] Wheelchair to [facility] with staff.
== END 2019-10-07 11:50 ==
LOC: ED 10:59 → ED-I 13:07 → ED 13:29 → MS2 13:30
PROVIDERS: Emergency Medicine; ADMIT Internal Medicine; ATTEND Internal Medicine
DX: N39.0 Urinary tract infection, site not specified (principal); E86.0 Dehydration; D46.9 Myelodysplastic syndrome, unspecified; M62.81 Muscle weakness (generalized); I11.0 Hypertensive heart disease with heart failure; I50.9 Heart failure, unspecified; I48.91 Unspecified atrial fibrillation; R63.0 Anorexia; B95.2 Enterococcus as the cause of diseases classified elsewhere; Z95.0 Presence of cardiac pacemaker
CPT/HCPCS: G0378